=== PATIENT | male | born 1945 | race African-American/Black ===

== ENCOUNTER 2018-01-21 21:31 | Inpatient (IN) | payer SELFPAY ==
[~2018-01-21] VITALS: Ht 162.6 cm; Wt 56.7 kg
[2018-01-21] MEDS ORDERED: LORazepam Inj 2mg/ml 1ml IV ONE (21:45)
[2018-01-21] MEDS ORDERED: levETIRAcetam 500 MG in D5W 110 ML IV ONE (21:45)
[2018-01-21 21:50] VITALS: BP 168/140
--- NOTE | 2018-01-21 21:51 | Emergency Room Report ---
History of Present Illness General Chief Complaint: Seizure Source: Patient, EMS Present Illness HPI Paramedics were summoned that the patient had a seizure. He was postictal initially but then started to seize. They gave him 5 mg of Versed in the field. They're uncertain whether there is any head trauma. The patient is homeless and no other history was available. Accu-Chek was 104 in the field. The patient had hypertension also. No further history is available. Allergies: Coded Allergies: NO KNOWN ALLERGIES (Verified Allergy, Unknown, 01/22/18) Patient History Limited by: medical condition Past Medical History: see triage record Social History: Denies: smoking, alcohol use, drug use Social History Narrative on the streets Reviewed Nursing Documentation: PMH: Agreed; PSxH: Agreed Nursing Documentation-PMH Past Medical History Deferred: Patient Unconscious Past Medical History: Deferred Review of Systems All Other Systems: limited Physical Exam Vital Signs Date Time Temp Pulse Resp B/P (MAP) Pulse Ox O2 Delivery O2 Flow Rate FiO2 01/21/18 21:21 128 20 168/140 100 Non-Rebreather 100 Sp02 EP Interpretation: reviewed, normal General Appearance: no apparent distress, Postictal Head: normocephalic, atraumatic Eyes: bilateral eye PERRL, bilateral eye Scleral Injection ENT: moist mucus membranes - gag present Neck: supple Respiratory: lungs clear, normal breath sounds Cardiovascular #1: regular rate, rhythm Cardiovascular #2: 2+ radial (R) Gastrointestinal: normal inspection, non tender, no mass, non-distended, decreased bowel sounds Musculoskeletal: back normal, normal range of motion Neurologic: no Babinski, other - flaccid and postictal Psychiatric: other - post ictal Reflexes: 2+ knee (R), 2+ knee (L) Skin: normal inspection, warm/dry Medical Decision Making Diagnostic Impression: Primary Impression: Seizure Additional Impression: Renal insufficiency ER Course Patient presents with seizure and very little other history is available. Glucose was adequate in the field and Versed was given. The patient is postictal at this time. Differential includes bleed, electrolyte abnormality, breakthrough seizures, new onset seizure, withdrawal amongst others. Evaluation will be with EKG, CT the head and labs. The patient will receive IV hydration, Ativan and Keppra. EKG without injury. CXR COPD. Labs with renal insufficiency. CT with atrophy. Awake. Questionable historian. Denies seizures to RN. May have had prior sz. Denies EtOH, drugs. No more seizure activity here. Admit telemetry Dr. Bhardwaj. Laboratory Tests Test 01/21/18 21:35 White Blood Count 10.0 K/UL (4.8-10.8) Red Blood Count 4.44 M/UL (4.70-6.10) L Hemoglobin 15.0 G/DL (14.2-18.0) Hematocrit 45.5 % (42.0-52.0) Mean Corpuscular Volume 102 FL (80-99) H Mean Corpuscular Hemoglobin 33.8 PG (27.0-31.0) H Mean Corpuscular Hemoglobin Concent 33.0 G/DL (32.0-36.0) Red Cell Distribution Width 12.0 % (11.6-14.8) Platelet Count 134 K/UL (150-450) L Mean Platelet Volume 7.2 FL (6.5-10.1) Neutrophils (%) (Auto) 61.3 % (45.0-75.0) Lymphocytes (%) (Auto) 22.2 % (20.0-45.0) Monocytes (%) (Auto) 13.5 % (1.0-10.0) H Eosinophils (%) (Auto) 0.6 % (0.0-3.0) Basophils (%) (Auto) 2.5 % (0.0-2.0) H Sodium Level 136 MMOL/L (136-145) Potassium Level 3.2 MMOL/L (3.5-5.1) L Chloride Level 99 MMOL/L (98-107) Carbon Dioxide Level 14 MMOL/L (21-32) L Anion Gap 24 mmol/L (5-15) H Blood Urea Nitrogen 9 mg/dL (7-18) Creatinine 1.7 MG/DL (0.55-1.30) H Estimate Glomerular Filtration Rate 40.0 mL/min (>60) Glucose Level 150 MG/DL (74-106) H Calcium Level 9.9 MG/DL (8.5-10.1) Total Bilirubin 2.0 MG/DL (0.2-1.0) H Direct Bilirubin 0.6 MG/DL (0.0-0.3) H Aspartate Amino Transferase (AST) 34 U/L (15-37) Alanine Aminotransferase (ALT) 36 U/L (12-78) Alkaline Phosphatase 89 U/L (46-116) Total Creatine Kinase 469 U/L (26-308) H Troponin I 0.011 ng/mL (0.000-0.056) Total Protein 8.4 G/DL (6.4-8.2) H Albumin 4.3 G/DL (3.4-5.0) Globulin 4.1 g/dL Albumin/Globulin Ratio 1.0 (1.0-2.7) Salicylates Level 1.2 ug/mL (2.8-20) L Acetaminophen Level < 2 MCG/ML (10-30) L Serum Alcohol < 3 mg/dL EKG Diagnostic Results Rate: tachycardiac Rhythm: NSR ST Segments: no acute changes Rhythm Strip Diag. Results EP Interpretation: yes Rhythm: no PVC's, no ectopy, other - sinus tachycardia Chest X-Ray Diagnostic Results Chest X-Ray Diagnostic Results : Chest X-Ray Ordered: Yes # of Views/Limited/Complete: 1 View Indication: Other Interpretation: no consolidation, no effusion, no pneumothorax, other - copd Impression: Other Electronically Signed by: Electronically signed by Daniel Monte MD CT/MRI/US Diagnostic Results CT/MRI/US Diagnostic Results : Imaging Test Ordered: head Impression no bleed, mass fx Last Vital Signs Date Time Temp Pulse Resp B/P (MAP) Pulse Ox O2 Delivery O2 Flow Rate FiO2 01/21/18 23:52 99.0 65 18 112/62 100 Room Air 99.0 01/21/18 21:50 15.0 100 Status: improved Disposition: ADMITTED INPATIENT Condition: Serious Daniel Monte M.D. Jan 21, 2018 21:51
[2018-01-21 22:09] LABS: BASOPHILS % (AUTO) 2.5 % (0.0-2.0); EOSINOPHILS % (AUTO) 0.6 % (0.0-3.0); HEMATOCRIT 45.5 % (42.0-52.0); LYMPHOCYTES % (AUTO) 22.2 % (20.0-45.0); MEAN CORPUSCULAR VOLUME 102 FL (80-99); MONOCYTES % (AUTO) 13.5 % (1.0-10.0); NEUTROPHILS % (AUTO) 61.3 % (45.0-75.0); PLATELET COUNT 134 K/UL (150-450); RED BLOOD COUNT 4.44 M/UL (4.70-6.10)
[2018-01-21 22:21] LABS: ANION GAP 24 mmol/L (5-15); BLOOD UREA NITROGEN 9 mg/dL (7-18); CALCIUM 9.9 MG/DL (8.5-10.1); CARBON DIOXIDE 14 MMOL/L (21-32); CHLORIDE 99 MMOL/L (98-107); CREATININE 1.7 MG/DL (0.55-1.30); POTASSIUM 3.2 MMOL/L (3.5-5.1); SODIUM 136 MMOL/L (136-145)
[2018-01-21 22:31] LABS: ALANINE AMINOTRANSFERASE 36 U/L (12-78); ALBUMIN 4.3 G/DL (3.4-5.0); ALKALINE PHOSPHATASE 89 U/L (46-116); ASPARTATE AMINO TRANSFERASE 34 U/L (15-37); CREATINE KINASE 469 U/L (26-308)
[2018-01-21 22:33] LABS: BILIRUBIN,DIRECT 0.6 MG/DL (0.0-0.3)
[2018-01-21 23:52] VITALS: BP 112/62
[2018-01-22] MEDS ORDERED: UNOBMED (00:39)
[2018-01-22 01:40] VITALS: BP_SYST 112; BP_SYST 132; BP_DIAS 63; BP_DIAS 80
[2018-01-22] MEDS ORDERED: NS w/KCl 40mEq 1,000 ML IV SCH (02:15)
[2018-01-22 04:00] VITALS: BP 106/76
[2018-01-22 08:00] VITALS: BP 127/70
[2018-01-22 09:00] LABS: BASOPHILS % (AUTO) 0.6 % (0.0-2.0); EOSINOPHILS % (AUTO) 0.1 % (0.0-3.0); HEMATOCRIT 37.3 % (42.0-52.0); HEMOGLOBIN 12.8 G/DL (14.2-18.0); LYMPHOCYTES % (AUTO) 8.4 % (20.0-45.0); MEAN CORPUSCULAR VOLUME 97 FL (80-99); MONOCYTES % (AUTO) 12.2 % (1.0-10.0); NEUTROPHILS % (AUTO) 78.6 % (45.0-75.0); PLATELET COUNT 135 K/UL (150-450); RED BLOOD COUNT 3.84 M/UL (4.70-6.10); RED CELL DISTRIBUTION WIDTH 11.2 % (11.6-14.8); WHITE BLOOD COUNT 13.6 K/UL (4.8-10.8)
[2018-01-22] MEDS ORDERED: cefTRIAXone 1 GM in D5W 55 ML IVPB SCH (09:00)
[2018-01-22] MEDS ORDERED: levETIRAcetam 500mg/NS100ml 100 ML IVPB SCH (09:00)
--- NOTE | 2018-01-22 09:05 | Diagnostic Imaging Report ---
Indication: Seizure Technique: Continuous helical CT scanning of the head was performed utilizing automated exposure control without intravenous contrast material. Axial and coronal reconstructions were obtained. Comparison: None CT dose: Total DLP 1491.65 mGycm; CTDI vol 70.38 mGy Findings: There is no acute intracranial hemorrhage, mass effect or cortical edema. The ventricles, cisterns and sulci are prominent consistent with atrophy. Periventricular hypoattenuation is seen, a nonspecific finding. There are atherosclerotic vascular calcifications. Visualized mastoid air cells are clear. Mild mucosal thickening noted in some ethmoid air cells. No focal lesions of the bony calvarium or soft tissues of the scalp are seen. IMPRESSION: No evidence of acute intracranial hemorrhage, mass effect or cortical edema. MRI may be obtained for more sensitive evaluation as clinically indicated. Senescent changes. This corresponds with the statrad preliminary report. The CT scanner at [facility] is accredited by the [employer] and the scans are performed using protocols designed to limit radiation exposure to as low as reasonably achievable to attain images of sufficient resolution adequate for diagnostic evaluation.
[2018-01-22 09:29] LABS: ANION GAP 12 mmol/L (5-15); BLOOD UREA NITROGEN 7 mg/dL (7-18); CALCIUM 8.3 MG/DL (8.5-10.1); CARBON DIOXIDE 21 MMOL/L (21-32); CHLORIDE 104 MMOL/L (98-107); CREATININE 1.1 MG/DL (0.55-1.30); POTASSIUM 3.7 MMOL/L (3.5-5.1); SODIUM 137 MMOL/L (136-145)
[2018-01-22 09:34] LABS: ALANINE AMINOTRANSFERASE 30 U/L (12-78); ALBUMIN 3.2 G/DL (3.4-5.0); ALKALINE PHOSPHATASE 60 U/L (46-116); ASPARTATE AMINO TRANSFERASE 34 U/L (15-37); BILIRUBIN,TOTAL 2.4 MG/DL (0.2-1.0)
[2018-01-22 09:43] LABS: BILIRUBIN,DIRECT 0.5 MG/DL (0.0-0.3)
--- NOTE | 2018-01-22 11:08 | Diagnostic Imaging Report ---
Indication: Seizure Technique: XRAY Chest 1v Comparison: None Findings: Limited exam with suboptimal positioning. Heart size and mediastinal contours are within normal limits for technique. There is no definite focal consolidation, pneumothorax or pleural effusion. Osseous structures demonstrate no acute abnormality. Some rounded radiopaque structures project over the left upper chest. Additional radiodensities project over the midline lower chest. These are likely external to the patient. IMPRESSION: Limited exam with suboptimal positioning. No definite radiographic evidence of acute cardiopulmonary disease. Rounded radiopaque structures project over the chest and are likely external to the patient. Correlate with physical exam. Consider repeat chest radiograph to assess for persistence/resolution of these findings. Study obtained via the emergency department however patient admitted to the hospital at time of dictation of the final report.
--- NOTE | 2018-01-22 14:09 | Cardiology Report ---
APPROVED REPORT EKG Measurement Heart [id number] and T wave abnormality Abnormal ECG
--- NOTE | 2018-01-24 08:48 | Discharge Summary ---
Discharge Summary Discharge Summary _ DATE OF ADMISSION: 01/21/2018 DATE OF DISCHARGE: 01/22/2018. Patient sign achiness medical advice REASON FOR ADMISSION: 72 years old homeless male was brought to emergency room for evaluation due to seizure episode. Patient was given 5 mg of versed in the field. I It was unclear if patient had any head trauma. Accu-Chek was 104. Vital signs revealed tachycardia 128 , elevated blood pressure 1. Patient was placed on 100% nonrebreathing mask Laboratory workup revealed no leukocytosis, stable hemoglobin and hematocrit Potassium 3.2. , BUN 9 creatinine 1.7. Troponin 0.011 ,stable LFT,elevated total bili 2.0. EKG revealed sinus tachycardia, no acute ischemic changes Chest x-ray revealed findings consistent with COPD, but no acute cardiopulmonary pathology. CT of the head revealed no acute intracranial pathology Toxicology for ETOH, Tylenol and salicylates was negative Patient admitted with diagnoses of seizure, renal insufficiency HOSPITAL COURSE: Patient admitted to telemetry floor. Seizure precautions were maintained. Patient started on Keppra. Ativan was on board as needed for breakthrough seizure. Patient was on IV hydration. Renal parameters and electrolytes were closely monitored, and electrolytes were replaced as needed. Nephrotoxins were avoided. Potassium stable after replacement - 3.7. Creatinine down to 1.1 the next day. Noted total and direct bilirubin elevated : total bilirubin 2.4 and direct bilirubin 0.5. In the morning patient expressed desire to leave AGAINST MEDICAL ADVICE. Noted mild leukocytosis 13.6 , patient was febrile. Tylenol was administered. Blood and urine cultures were ordered , patient started on empiric antibiotic. Patient insisted on leaving AGAINST MEDICAL ADVICE and stated that he felt better . Mental status stable. The risks and consequences of signing AGAINST MEDICAL ADVICE were discussed with the patient, patient verbalized understanding, signed the form and left. FINAL DIAGNOSES: Seizure Renal insufficiency I have been assigned to dictate discharge summary for this account. I was not involved in the patient's management. Santa Alva NP Jan 24, 2018 08:48
== END 2018-01-22 09:30 | disposition left against medical advice (07) | DRG 101 ==
LOC: EDBD 21:31 → EMR 21:41 → EDBEDREQ 22:53 → 2E 23:05
DX: R56.9 Unspecified convulsions (principal); N28.9 Disorder of kidney and ureter, unspecified; Z59.0 Homelessness
CPT/HCPCS: 36415; 70450; 71045; 80053; 80329; 82248; 82550; 82962; 84484; 85025; 87040; 87081; 93005; 99285